=== PATIENT | female | born 1985 | race Caucasian/White ===

== ENCOUNTER 2016-09-26 06:06 | Inpatient (IN) | payer OTHER ==
[~2016-09-26] VITALS: Ht 160 cm; Wt 93.0 kg
[~2016-09-26 06:06] MED LIST: TAMIFLU75 M1 PO
[2016-09-26 06:17] VITALS: BP 135/77
--- NOTE | 2016-09-26 08:52 | Operative Report ---
Operative/Inv Procedure Report Surgery Date: 09/26/16 Name of Procedure: Repeat low flap transverse section lysis of adhesions via Pfannenstiel skin incision Pre-Operative Diagnosis: Term previous section Post-Operative Diagnosis: Same Estimated Blood Loss: 500 Surgeon/Splunk Developer: LUPE THOMPSON,PAULA Ortizand Dr. Charles Galindo [facility] Anesthesia: block Operative/Procedure Note Note: Patient was taken the operating room placed supine position after adequate anesthesia patient placed in dorsolithotomy position vagina from dorsal fashion bladder was catheterized patient was returned supine position after adequate skin testing for surgery through an old Pfannenstiel skin incision skin was cut was carried down to rectus fascia which was cut in curvilinear fashion I direction peritoneal cavity was entered high into the abdomen Gonzales O'Adolfo was placed in usual fashion on since removed from the field in the lower uterine segment bladder flap was developed using Metzenbaums at this point the uterus was opened after bladder blade have been replaced to protect the bladder uterus was opened with the back of knife dissected bluntly as well as sharply on the cord I was reducible's the babies vertex was delivered over the uterine incision cord was doubly clamped and cut infant was handed to immunochemist was waiting delivering to aid in resuscitation placenta was delivered manually noted to be intact was wiped clean with 3 wet dry last insurance free of adherent membranes intravenous Pitocin and intramyometrial Pitocin and Methergine were used for uterine contractility first layer the uterus was closed running locked suture of 0 was imbricated with interrupted [id number]'s running locking suture hemostasis was apparent. The uterus was returned to abdominal cavity irrigated abdomen was irrigated hemostasis was apparent the peritoneum was reapproximated 0 the fascia was reapproximated to continue sutures #1 skin was reapproximated fatoumata at the end the case the counts correct the Bovie coagulation subcutaneous tissue had achieved hemostasis a pressure dressing was applied the urine was clear and mom and infant were transferred to recovery room awake alert counts correct Findings: Viable female infant 7 lbs. 13 oz. cord around neck reducible three-vessel cord normal placenta and normal ovaries and tubes bilaterally taken the lower uterine segment adhesions from the rectus muscle to the rectus fascia
--- NOTE | 2016-09-26 08:59 | History & Physical ---
General Information and HPI MD Statement: I have seen and personally examined CHAY YAÑEZ and documented this H&P. The patient is a 30 year old female at [39] weeks and [] days gestation who presented with a chief complaint of []. Previous section she did have a baby History of Present Illness: 30-year-old 2 para 1 presents the childbirth center for previous section for section Allergies/Medications Allergies: Coded Allergies: NO KNOWN ALLERGIES (NO REACTION 09/26/16) Home Med list Oseltamivir Phosphate (Tamiflu) 75 MG CAPSULE 1 CAP PO BID INFLUENZA Past History topographic computator History : 2 Para: 1 Last Menstrual Period: 12/07/2015 Past topographic computator History: section Medical History Neurological: NONE EENT: NONE Cardiovascular: NONE Respiratory: NONE Gastrointestinal: NONE Hepatic: NONE Renal: NONE Musculoskeletal: NONE Psychiatric: NONE Endocrine: NONE Surgical History Pertinent Surgical History: non-contributory Past Family/Social History Psychosocial History Smoking Status: Never Smoked Review of Systems Review of Systems: Is 13 point review of systems as stated in the HPI Exam & Diagnostic Data Last 24 Hrs of Vital Signs/I&O Vital Signs Date Time Temp Pulse Resp B/P B/P Pulse O2 O2 Flow FiO2 Mean Ox Delivery Rate 09/26 0617 135/77 Intake & Output 09/26 1600 09/26 0800 09/26 0000 Intake Total Output Total Balance Patient 205 lb Weight Obstetric Exam Wgt Gained During : 42 pounds Pelvimetry: Untested Dilation (cm): 0 Effacement (%): 0 Station: 0 Membranes: intact Fluid: unknown Fundal Height (cm): 40 Multiple Gestation? No Contractions: None Patient for Induction? No Labs Blood Type & Rh: A positive Antibody Screen: Negative Hct/Hgb & Platelets #1: Hct/Hgb & Platelets #2: to 19 Rubella: immune VDRL #1: nonreactive VDRL #2: Nonreactive HbsAg: Negative HIV #1: Negative HIV #2 Negative 1 Hr P 3 Hr P 7550 05/11/2017nl Group B Strep: Negative Initial Ultrasound: Normal Anatomy Ultrasound: Normal Genetic Testing: nl Last 24 Hrs of Labs/Al: Microbiology 09/27 611 URINE ROUT: Urine Culture - COLB Assessment/Plan Assessment/Plan: assess term previous section Plan antibiotics As Ranked By This Provider Problem List: 1. Core Measures/Miscellaneous Venous Thromboembolism VTE Risk Factors: / VTE Contraindications: No Contraindications VTE Diagnosis: No Beta Melinda Is Beta Melinda a Home Med? No Antibiotics Is Patient on Antibiotics? No
[2016-09-27 10:34] LABS: ABSOLUTE BASOPHIL COUNT 0 /CUMM (0.0-0.2); ABSOLUTE EOSINOPHIL COUNT 0.1 /CUMM (0.0-0.7); ABSOLUTE GRANULOCYTE CT 5.9 /CUMM (1.4-6.5); ABSOLUTE MONOCYTE COUNT 0.6 /CUMM (0.10-0.60); BASOPHIL % 0.3 % (0.0-2.0); EOSINOPHIL % 1.3 % (0-5); GRANULOCYTE % 68.5 % (42.2-75.2); MEAN CORPUSCULAR HGB 31.4 PG (27.0-31.0); MEAN CORPUSCULAR HGB CONC 32.8 G/DL (33.0-37.0); MEAN CORPUSCULAR VOLUME 95.8 FL (81.0-99.0); MEAN PLATELET VOLUME 8.7 FL (7.4-10.4); PLATELET COUNT 188 /CUMM (130-400); RBC DISTRIBUTION WIDTH 14.6 % (11.5-14.5); RED BLOOD CELL CT 3.04 /CUMM (4.20-5.40); WHITE BLOOD CELL COUNT 8.7 /CUMM (4.8-10.8)
[2016-09-27 10:48] LABS: HEMATOCRIT 29.1 % (37-47)
[2016-09-27] MEDS ORDERED: PERCOCET 5-3251 EACH PO (16:33)
[2016-09-27] MEDS ORDERED: IBUPROFEN800 M1 PO (16:33)
--- NOTE | 2016-09-27 16:33 | PN- Post Delivery/GYN ---
Subjective Subjective: NO COMPLINTA PASSECD GAS Objective Last 24 Hrs of Vital Signs/I&O PER PAPER CHART Physical Exam: PE PALE WF IN NAD ABD SOFT NT INCISION CDI EXT -EDEMA Assessment/Plan Assessment/Plan ASSESS S/P C/S PLAN CONT PPC
--- NOTE | 2016-09-28 08:31 | PN- Post Delivery/GYN ---
Subjective Subjective: POSITIVE BM Objective Last 24 Hrs of Vital Signs/I&O PER CHART Physical Exam: PE THIN WF IN NAD ABD SOFT NT INCISION CDI EXT -EDMA -HOMANS Assessment/Plan Assessment/Plan ASSESS S/P C/S PLAN CONT PPC
== END 2016-09-28 15:30 | DRG 766 ==
LOC: GNO 06:06
PROVIDERS: ADMIT Specialist
PROC: 10D00Z1 Extraction of Products of Conception, Low, Open Approach (ICD-10-PCS; principal; 2016-09-26)
DX: O34.211 Maternal care for low transverse scar from previous cesarean delivery (principal); O69.81X0 Labor and delivery complicated by cord around neck, without compression, not applicable or unspecified; Z3A.39 39 weeks gestation of pregnancy; Z37.0 Single live birth
CPT/HCPCS: GNOS; 36415; 87086; J0690; J1650; J1885; J2210; J7120